=== PATIENT | female | born 1975 | race Caucasian/White ===

== ENCOUNTER 2022-02-15 00:51 | Day surgery (SDC) | payer BC, SELFPAY ==
[2022-02-02 13:46] VITALS: BMI 23.6
[2022-02-15 09:49] VITALS: BP 108/74; PULSE 90; RESP 20; TEMP 36.9; O2SAT 100
[2022-02-15] MEDS: LACTATED RINGERS 1,000 ML 150 ML IV CONT (09:59)
--- NOTE | 2022-02-15 10:28 | WPDANESEPPF ---
Anes - Initial Pre Proc Eval Procedure: Operation Date: 02/15/22 11:15 Proposed Procedures p Colonoscopy - Shadi Rodriguez MD Date/Time: 02/15/22 10:28 Surgeon: Shadi Rodriguez MD Pre Op Diagnosis: RLQP, colitis Patient Data Age: 46 Gender: F Height: 1.73 m Weight: 67.2 kg Last Vital Signs Temp 98.5 F 02/15/22 09:49 Pulse 90 02/15/22 09:49 Resp 20 02/15/22 09:49 BP 108/74 02/15/22 09:49 Pulse Ox 100 02/15/22 09:49 O2 Del Method Room Air 02/15/22 09:49 Allergies Allergy/AdvReac Type Severity Reaction Status Date / Time No Known Allergies Allergy Mild Verified 02/15/22 09:49 Home Medications Medication Instructions Recorded Confirmed Type desvenlafaxine succinate 25 mg 25 mg PO DAILY #30 tabs 02/01/22 02/02/22 Rx tablet,extended release 24 hr lorazepam 1 mg tablet 1 mg PO BID PRN anxiety #30 tabs 02/01/22 02/02/22 Rx Patient hx anesthesia problems: none Family hx anesthesia problems: none Results Review: All pre-operative results and documents have been reviewed as part of the pre-operative evaluation. [facility] [place] Past Medical History Medical History (Updated 02/01/22 @ 14:30 by Su Menon PA-C) Anxiety History of rectal fissure Low plasma platelet-activating factor acetylhydrolase Ovarian cyst RLQ abdominal pain Surgical History Surgical History H/O breast augmentation H/O tubal ligation Family History Family History Mother Depression Social History Social History Smoking status: Never smoker Alcohol intake: current Alcohol use details: social Substance use: never Substance use type: does not use Living arrangements: with family Spiritual care concerns: No Anes - Eval Final PreProcedure Day of Procedure 02/15/22 10:28 Patient weight: normal Heart: regular rate and rhythm Lungs: clear to auscultation Airway: Mallampati scale class II Neurological: alert and oriented Last oral intake: >/= 8 hours ASA classification: II Emergent: no Anesthetic plan: proceed Anesthesia type and monitoring: general and standard monitoring Results Review: All pre-operative results and documents have been reviewed as part of the pre-operative evaluation. Informed Consent: The patient's anesthetic plan and its attendant risks and benefits were discussed with the patient/family/POA. Questions were solicited and answers provided to the satisfaction of the patient/family/POA.
--- NOTE | 2022-02-15 10:41 | PM.HPGS ---
History of Present Illness History of Present Illness Consent: Risks, benefits, and alternatives have been discussed and questions answered. Patient agrees to proceed with procedure. Chief complaint: RLQP, colitis Narrative: Amy Girard is a 46 year old female with previous episode of colitis, never had colonoscopy Review of Systems Constitutional: Constitutional: Denies headache(s) and Denies weakness Eyes: Eyes: Denies blurry vision ENT: Reports Normal hearing present, Denies headache(s) and Denies neck pain Cardiovascular: Cardiovascular: Denies chest pain and Denies dyspnea Respiratory: Respiratory: Denies dyspnea Gastrointestinal: Gastrointestinal: Reports no additional gastrointestinal complaints Genitourinary: Genitourinary: Denies dysuria Musculoskeletal: Musculoskeletal: Denies neck pain Integumentary/Breasts: Skin/Breast: Denies dry skin Neurologic: Reports Normal hearing present, Denies headache(s) and Denies weakness Psychiatric: Psychiatric: Denies anxiety Endocrine: Endocrine: Denies change in body appearance Hematologic/Lymphatic: Hematologic/Lymphatic: Denies easy bleeding Allergic/Immunologic: Allergic/Immunologic: Denies urticaria PMFSH Past Medical History Medical History (Updated 02/15/22 @ 10:41 by Shadi Rodriguez MD) Anxiety Colitis History of rectal fissure Low plasma platelet-activating factor acetylhydrolase Ovarian cyst RLQ abdominal pain Surgical History Surgical History H/O breast augmentation H/O tubal ligation Family History Family History Mother Depression Social History Social History Smoking status: Never smoker Alcohol intake: current Alcohol use details: social Substance use: never Substance use type: does not use Living arrangements: with family Spiritual care concerns: No Meds Home Medications and Allergies Home Medications Medication Instructions Recorded Confirmed Type desvenlafaxine succinate 25 mg 25 mg PO DAILY #30 tabs 02/01/22 02/02/22 Rx tablet,extended release 24 hr lorazepam 1 mg tablet 1 mg PO BID PRN anxiety #30 tabs 02/01/22 02/02/22 Rx Allergies Allergy/AdvReac Type Severity Reaction Status Date / Time No Known Allergies Allergy Mild Verified 09/07/22 09:49 Vital Signs Vital Signs - 24 hr 02/15/22 09:49 Temperature 98.5 F Pulse Rate 90 Respiratory Rate 20 Blood Pressure 108/74 Pulse Oximetry 100 Oxygen Delivery Room Air Exam Const: General: comfortable and no acute distress HENMT: General nose exam: Normal nares present Eyes: General: appearance normal, both eyes and all related structures Neck: Neck: no JVD Resp: Auscultation: clear to auscultation bilaterally Cardio: Rate: regular rate Rhythm: regular rhythm GI: Inspection: non-distended GI Palp: Yes Soft to palpation Skin: General skin exam: normal color Neuro: General: gait normal Speech: normal speech Extrem: General: normal to inspection Psych: Mental Status: mental status grossly normal Assessment and Plan Assessment and plan (1) Colitis: Code(s): K52.9 - Noninfective gastroenteritis and colitis, unspecified Status: Acute Assessment and Plan: resolved, now here for screening colonoscopy
[2022-02-15 10:58] VITALS: BP 92/58; PULSE 90; RESP 21; O2SAT 99
[2022-02-15 11:08] VITALS: BP 109/75; PULSE 86; RESP 15; O2SAT 99
[2022-02-15 11:18] VITALS: BP 108/72; PULSE 73; RESP 16; O2SAT 98
== END 2022-02-15 11:21 | disposition home or self-care (01) ==
PROVIDERS: PCP Family Medicine; Visit Provider Internal Medicine Gastroenterology
PROC: 0DJD8ZZ Inspection of Lower Intestinal Tract, Via Natural or Artificial Opening Endoscopic (ICD-10-PCS; CPT 45378; principal; 2022-02-15 11:15)
DX: K52.9 Noninfective gastroenteritis and colitis, unspecified (principal); R10.31 Right lower quadrant pain; F41.9 Anxiety disorder, unspecified; K64.8 Other hemorrhoids
CPT/HCPCS: 45378; J2704; J7120